=== PATIENT | female | born 1955 | race Caucasian/White ===

== ENCOUNTER 2017-10-15 18:11 | Emergency (ER) | payer BC ==
[2017-10-15 18:31] VITALS: BP 158/99
--- NOTE | 2017-10-15 19:45 | RAD ---
INDICATION: Posterior left knee pain COMPARISON: None TECHNIQUE: 4 view radiograph of the left knee. FINDINGS: The visualized bones are well-corticated and properly aligned. The joint spaces are properly maintained. There is no radiographic evidence of joint effusion. There is no acute fracture, dislocation or other focal bony abnormality. IMPRESSION: Normal knee radiograph as described above. If the patient's symptoms persist, follow-up imaging is recommended.
--- NOTE | 2017-10-15 20:14 | UC ---
Claudia Fraser Elizabeth, scribed for Asad Bejarano MD on 10/15/17 at 1845 . Knee Pain HPI - HPI Summary HPI Summary: This patient is a 62 year old F presenting to [facility] with a chief complaint of intermittent back left knee pain since 2 weeks ago. The patient reports that the pain began after she pushed a golf cart up a hill. The patient rates the pain 6/10 in severity. Symptoms aggravated by flexion. Symptoms alleviated by nothing. Patient denies any additional symptoms. The patient notes that she has been under a lot of stress recently. - History of Current Complaint Chief Complaint: UCUpperExtremity Stated Complaint: KNEE PAIN Time Seen by Provider: 10/15/17 18:34 Hx Obtained From: Patient Onset/Duration: Sudden Onset, Lasting Weeks - 2 weeks, Still Present, Worse Since - today Severity Initially: Mild Severity Currently: Moderate Location Of Injury: back of left knee Pain Intensity: 6 Pain Scale Used: 0-10 Numeric Aggravating Factor(s): Movement - flexion Alleviating Factor(s): Nothing Able to Bear Weight: Yes - Allergies/Home Medications Allergies/Adverse Reactions: Allergies Allergy/AdvReac Type Severity Reaction Status Date / Time No Known Allergies Allergy Verified 10/15/17 18:31 Home Medications: Home Medications amLODIPine TAB* [Norvasc 5 mg TAB*] 1 tab PO DAILY 10/15/17 [History Confirmed 10/15/17] PMH/Surg Hx/FS Hx/Imm Hx Other Endocrine History: negative diabetes Other Respiratory History: negative COPD - Surgical History Surgical History: Yes Surgery Procedure, Year, and Place: ,HEMORROIDECTOMY, IUD - Family History Known Family History: Positive: None - patient denies relevant FHx - Social History Alcohol Use: Occasionally Substance Use Type: None Smoking Status (MU): Never Smoked Tobacco Review of Systems Constitutional: Negative - negative chills ENT: Negative - negative epistaxis Gastrointestinal: Negative - negative vomiting Musculoskeletal: Arthralgia - pain in back of left knee All Other Systems Reviewed And Are Negative: Yes Physical Exam - Summary Physical Exam Summary: General: well-appearing, no pain distress Skin: warm, color reflects adequate perfusion, dry Head: normal Eyes: EOMI, CATALINA ENT: normal Neck: supple, nontender Respiratory: CTA, breath sounds present Cardiovascular: RRR Abdomen: soft, nontender Bowel: present Musculoskeletal: normal, strength/ROM intact, mild tenderness in the popliteal of left knee, negative McMurrays, negative Lachmans Neurological: sensory/motor intact, A&O x3 Psychological: affect/mood appropriate Triage Information Reviewed: Yes Vital Signs: Initial Vital Signs Temp 99.2 F 10/15/17 18:26 Pulse 68 10/15/17 18:26 Resp 12 10/15/17 18:26 BP 158/99 10/15/17 18:26 Pulse Ox 98 10/15/17 18:26 Vital Signs Reviewed: Yes Diagnostics - Radiology Knee XR Xray Interpretation: No Acute Changes - IMPRESSION: Normal knee radiograph as described above. If the patient's symptoms persist, follow-up imaging is recommended. Dr. Bejarano has reviewed this report. Radiology Interpretation Completed By: Radiologist Knee Pain Course/Dx - Course Course Of Treatment: SMALL EFFUSIN ON EXAM. DISCUSSED X-RAY RESULTS WITH THE PATIENT. SHE HAS F/U SCHEDULED WITH DR MABRY. - Differential Dx/Diagnosis Provider Diagnoses: LEFT KNEE PAIN WITH EFFUSION. elevated BP without dx of HTN Discharge - Sign-Out/Discharge Documenting (check all that apply): Discharge/Admit/Transfer - Discharge Plan Condition: Stable Disposition: HOME Discharge Disposition Comment: discharge home Patient Education Materials: Swollen Knee Joint (ED), Knee Pain (ED) Referrals: Caroline Mccartney MD [Primary Care Provider] - Additional Instructions: Your blood pressure was elevated during todays visit; please follow up with your primary care provider within a week for further evaluation. FOLLOW UP WITH DR MABRY SCHEDULED. GET RECHECKED FOR ANY WORSENING OF YOUR CONDITION OR QUESTIONS OR CONCERNS. - Billing Disposition and Condition Condition: STABLE Disposition: Home The documentation as recorded by the Claudia dexter Elizabeth accurately reflects the service I personally performed and the decisions made by me, Asad Bejarano MD.
== END 2017-10-15 20:00 | disposition home or self-care (01) ==
LOC: UCEAST 18:11
DX: J90 Pleural effusion, not elsewhere classified (principal); R03.0 Elevated blood-pressure reading, without diagnosis of hypertension
CPT/HCPCS: 99212; G0463

== ENCOUNTER 2018-05-01 09:10 | Day surgery (SDC) | payer BC ==
[~2018-05-01 09:10] MED LIST: Acetaminophen TAB* 325 MG PO PRN; Buffered Lidocaine 0.9% SYRIN* 5 ML/SYR SYRINGE INTRADERM ONE; Cyclopentolate 1% OPTH.SOL* 2 ML BTL ONE; Ketorolac 0.5% OPHTH (NF) 0.5 % 5 ML BTL ONE; Lidocaine 1%* 5 ML VIAL ONE; Lidocaine 2% EPI 1:200000 MPF*10-20 ML VIAL ONE; Midazolam* 1 MG/ML 2 ML VIAL (2 MG) ONE; Neomycin/Polymy/Dex OPTH.SUSP* MAXITROL 0.1% 5 ML ONE; Povidone Iodine 5% OPTH* 30 ML BTL ONE; Proparacaine 0.5% OPHTH.SOL* 15 ML BTL ONE; acetaZOLAMIDE TAB* 250 MG ONE; fentaNYL* 50 MCG/ML 2 ML VIAL (100 MCG VIAL) ONE
[2018-05-01] MEDS ORDERED: Lidocaine 1%* 5 ML VIAL ONE (10:12)
[2018-05-01] MEDS ORDERED: Lidocaine 2% EPI 1:200000 MPF*10-20 ML VIAL ONE (10:12)
[2018-05-01] MEDS ORDERED: acetaZOLAMIDE TAB* 250 MG ONE (10:12)
[2018-05-01] MEDS ORDERED: Povidone Iodine 5% OPTH* 30 ML BTL ONE (10:12)
[2018-05-01] MEDS ORDERED: Cyclopentolate 1% OPTH.SOL* 2 ML BTL ONE (10:12)
[2018-05-01] MEDS ORDERED: Neomycin/Polymy/Dex OPTH.SUSP* MAXITROL 0.1% 5 ML ONE (10:12)
[2018-05-01] MEDS ORDERED: Ketorolac 0.5% OPHTH (NF) 0.5 % 5 ML BTL ONE (10:12)
[2018-05-01] MEDS ORDERED: Proparacaine 0.5% OPHTH.SOL* 15 ML BTL ONE (10:13)
[2018-05-01] MEDS ORDERED: Midazolam* 1 MG/ML 2 ML VIAL (2 MG) ONE (12:10)
[2018-05-01 12:36] VITALS: BP 114/81
--- NOTE | 2018-05-01 20:18 | OP ---
DATE OF OPERATION: 05/01/18 [facility] DATE OF : 53 SURGEON: Hollis Bryant M.D. PREOPERATIVE DIAGNOSIS: Cataract right eye. POSTOPERATIVE DIAGNOSIS: Cataract right eye. OPERATIVE PROCEDURE: Extracapsular cataract extraction with intraocular lens implant, right eye. DESCRIPTION OF PROCEDURE: The patient was brought to the operating room after being given 1/2% Alcaine with epinephrine drops in the preoperative area. The eye was prepped and draped in the usual sterile fashion. Sterile drape and eyelid speculum were placed. Again, topical 1/2% Alcaine with epinephrine was given. A paracentesis incision was made at the 9 o'clock position with the No.75 blade. Clear cornea incision 2.2 x 2.2-mm was created at the 12 o'clock position starting at the anterior limbus using the 2.2-mm keratome. The anterior chamber was irrigated with 0.4 mL of 1% non-preservative intracameral lidocaine and filled with DisCoVisc. A capsulorrhexis was completed using the cystotome and the Utrata forceps. Hydrodissection was performed with balanced salt solution. The lens nucleus was removed with the Phacoemulsification handpiece without incident. Cortex was removed with the irrigation-aspiration handpiece. The capsular bag was re-inflated using DisCoVisc and an [id number] 20.5 implant was inserted with the shooter, oriented to the 36-degree meridian. Horizontal reference lopez were made with the patient in the seated position in the preoperative area. The irrigation-aspiration handpiece was used to remove all residual DisCoVisc. The eye was refilled with balanced salt solution and the wound checked and found to be watertight. Topical Maxitrol drops were given. [id number]/[facility] #: [id number] MTDD
== END 2018-05-01 12:41 | disposition home or self-care (01) ==
LOC: OREAST 09:10
PROVIDERS: ATTEND Specialist
DX: H25.811 Combined forms of age-related cataract, right eye (principal); H16.223 Keratoconjunctivitis sicca, not specified as Sjogren's, bilateral; H40.013 Open angle with borderline findings, low risk, bilateral; I10 Essential (primary) hypertension; I49.9 Cardiac arrhythmia, unspecified; J30.2 Other seasonal allergic rhinitis
CPT/HCPCS: A9270-GY; J2250; J3010; V2787

== ENCOUNTER 2018-05-08 07:38 | Day surgery (SDC) | payer BC ==
[~2018-05-08 07:38] MED LIST changes: -Buffered Lidocaine 0.9% SYRIN* 5 ML/SYR SYRINGE INTRADERM ONE; +Buffered Lidocaine 1% SYRIN* 1 ML/SYRINGE INTRADERM ONE; -Cyclopentolate 1% OPTH.SOL* 2 ML BTL ONE; -Ketorolac 0.5% OPHTH (NF) 0.5 % 5 ML BTL ONE; -Lidocaine 1%* 5 ML VIAL ONE; -Lidocaine 2% EPI 1:200000 MPF*10-20 ML VIAL ONE; -Midazolam* 1 MG/ML 2 ML VIAL (2 MG) ONE; -Neomycin/Polymy/Dex OPTH.SUSP* MAXITROL 0.1% 5 ML ONE; -Povidone Iodine 5% OPTH* 30 ML BTL ONE; -Proparacaine 0.5% OPHTH.SOL* 15 ML BTL ONE; -acetaZOLAMIDE TAB* 250 MG ONE; -fentaNYL* 50 MCG/ML 2 ML VIAL (100 MCG VIAL) ONE
[2018-05-08] MEDS ORDERED: Phenylephrine 2.5% OPTH.SOL* 2 ML BTL ONE (08:35)
[2018-05-08] MEDS ORDERED: Povidone Iodine 5% OPTH* 30 ML BTL ONE (08:35)
[2018-05-08] MEDS ORDERED: Ketorolac 0.5% OPHTH (NF) 0.5 % 5 ML BTL ONE (08:35)
[2018-05-08] MEDS ORDERED: Cyclopentolate 1% OPTH.SOL* 2 ML BTL ONE (08:35)
[2018-05-08] MEDS ORDERED: Lidocaine 1%* 5 ML VIAL ONE (08:35)
[2018-05-08] MEDS ORDERED: acetaZOLAMIDE TAB* 250 MG ONE (08:35)
[2018-05-08] MEDS ORDERED: Lidocaine 2% EPI 1:200000 MPF*10-20 ML VIAL ONE (08:35)
[2018-05-08] MEDS ORDERED: Neomycin/Polymy/Dex OPTH.SUSP* MAXITROL 0.1% 5 ML ONE (08:35)
[2018-05-08] MEDS ORDERED: Proparacaine 0.5% OPHTH.SOL* 15 ML BTL ONE (08:36)
[2018-05-08] MEDS ORDERED: Midazolam* 1 MG/ML 5 ML VIAL (5 MG) ONE (08:39)
[2018-05-08] MEDS ORDERED: fentaNYL* 50 MCG/ML 2 ML VIAL (100 MCG VIAL) ONE (09:20)
[2018-05-08 09:47] VITALS: BP 128/95
--- NOTE | 2018-05-08 11:16 | OP ---
OPERATIVE NOTE: DATE OF OPERATION: 05/08/18 DATE OF : 53 SURGEON: Hollis Bryant M.D. PREOPERATIVE DIAGNOSIS: Cataract, left eye. POSTOPERATIVE DIAGNOSIS: Cataract, left eye. OPERATIVE PROCEDURE: Extracapsular cataract extraction with intraocular lens implant, left eye. PROCEDURE: The patient was brought to the operating room after being given 1/2% Alcaine with epineph rine drops in the preoperative area. The eye was prepped and draped in the usual sterile fashion. S terile drape and eyelid speculum were placed. Again, topical 1/2% Alcaine with epinephrine was given . A paracentesis incision was made at the 3 o'clock position with the No. 75 blade. Clear cornea in cision 2.2 x 2.2-mm was created at the 6 o'clock position starting at the anterior limbus using the 2 .2-mm keratome. The anterior chamber was irrigated with 0.4 mL of 1% non-preservative intracameral l idocaine and filled with DisCoVisc. A capsulorrhexis was completed using the cystotome and the Utrat a forceps. Hydrodissection was performed with balanced salt solution. The lens nucleus was removed w ith the Phacoemulsification handpiece without incident. Cortex was removed with the irrigation-aspir ation handpiece. The capsular bag was re-inflated using DisCoVisc and an SN6AT3 21.0 implant was ins erted with the shooter, oriented to the 137 degree meridian. The horizontal reference lopez were mad e with the patient seated in the preoperative area. The irrigation-aspiration handpiece was used to remove all residual DisCoVisc. The eye was refilled with balanced salt solution and the wound checke d and found to be watertight. Topical Maxitrol drops were given. [id number]/[facility] #: [id number]
== END 2018-05-08 09:54 | disposition home or self-care (01) ==
LOC: OREAST 07:38
PROVIDERS: ATTEND Specialist
DX: H25.812 Combined forms of age-related cataract, left eye (principal); H16.223 Keratoconjunctivitis sicca, not specified as Sjogren's, bilateral; H40.013 Open angle with borderline findings, low risk, bilateral; Z87.891 Personal history of nicotine dependence; I10 Essential (primary) hypertension; F41.9 Anxiety disorder, unspecified
CPT/HCPCS: A9270-GY; J2250; J3010; V2787